=== PATIENT | female | born 1950 | race Caucasian/White ===

== ENCOUNTER 2017-02-11 15:53 | Inpatient (IN) | payer MEDICARE, MEDICAID ==
[~2017-02-11] VITALS: Ht 151.1 cm; Wt 64.0 kg
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
--- NOTE | ~2017-02-11 | DS ---
[place], [place] DISCHARGE SUMMARY NAME: WOODY COHN UNIT #: [id number] ROOM: 312 DOCTOR: GISELL BRAVO BIRTHDATE: [birth year] DOS: 02/13/2017 CHIEF COMPLAINT: "I am ready to go home." HISTORY OF PRESENT ILLNESS: She is a 66-year-old white female who was pink slipped to the [facility] from [facility]. She went there to [facility] because she was having what she believed was a panic attack, shortness of breath and high anxiety. While at [facility], she also complained of pain. When she was there, they believed that she was suicidal and so she was pink slipped to the unit. PAST MEDICAL HISTORY: Significant for asthma. She does have chronic back pain due to bulging disk and disk degeneration, COPD, fibromyalgia, GERD, hyperlipidemia, hypertension and a mitral valve prolapse. ALLERGIES: She lists allergies to both PAXIL and ZOLOFT. SUMMARY OF HOSPITAL STAY: When she came in on February 11, she was on Ativan Trintellix and Latuda, those medications were discontinued and Klonopin was started in order to treat her panic disorder and that was titrated to a dose of 0.5 mg twice a day and then a full milligram at bedtime. She was also started on Sinequan for her depression and also to assist with pain control and that was at 25 mg in the morning and 50 mg at bedtime. She has been stable while she has been on the unit. She continues to occasionally have disordered thinking but this is her baseline. MENTAL STATUS: She is alert and oriented. Her mood was euthymic on discharge. Affect was appropriate. There is no ryan or hypomania. She denies any audio or visual hallucinations, delusions or paranoia. DIAGNOSES: Major depressive disorder and panic disorder. DISPOSITION: She will be discharged home. Her scripts were printed and will be sent with her at discharge. She is psychiatrically stable at discharge. [place], [place] DISCHARGE SUMMARY NAME: WOODY COHN UNIT #: [id number] ROOM: 312 DOCTOR: GISELL BRAVO BIRTHDATE: [birth year] Gisell Cutlip, [employer] CM:DISCHARG [id number] GISELL CUTLIP 02/13/17 172 interface
[2017-02-11] MEDS ORDERED: ATENOLOL50 M1 PO (18:53)
[2017-02-11] MEDS ORDERED: ZANTAC 300300 MG PO (18:54)
[2017-02-11] MEDS ORDERED: LASIX40 MG PO (18:54)
[2017-02-11] MEDS ORDERED: VALIUM10 MG PO (18:56)
[2017-02-11] MEDS ORDERED: NORCO 10-325 T1 EACH PO (18:56)
[2017-02-11 21:47] VITALS: BP 123/67
[2017-02-11 22:30] VITALS: BP 123/67
[2017-02-12 08:16] VITALS: BP 141/73
[2017-02-12 14:02] LABS: BASO % 0.4 % (0.0-1.0); EOS # 0.1 10*3/uL (0.0-0.4); EOS % 1.8 % (1.0-4.0); HEMATOCRIT 43.1 % (37.0-47.0); HEMOGLOBIN 14.7 g/dl (12.0-16.0); LYMPH % 25.6 % (27.0-41.0); MEAN CELL VOLUME 93.5 fl (81.0-99.0); MEAN CORPUSCULAR HGB 31.9 pg (27.0-31.0); MEAN CORPUSCULAR HGB CONC 34.1 g/dl (33.0-37.0); MEAN PLATELET VOLUME 9.8 fl (9.6-12.3); MONO # 0.5 10*3/uL (0.1-1.0); MONO % 7.1 % (3.0-9.0); NEUT # 4.9 10*3/uL (2.3-7.9); NEUT % 64.7 % (47.0-73.0); PLATELET COUNT AUTOMATED 254 10*3/uL (130-400); RED BLOOD COUNT 4.61 10*6/uL (4.10-5.10); RED CELL DISTRI WIDTH 13.1 % (0-14.5); WHITE BLOOD COUNT 7.6 10*3/uL (4.8-10.8)
[2017-02-12 14:34] LABS: ALBUMIN 3.5 gm/dl (3.1-4.5); ALKALINE PHOSPHATASE 104 U/L (45-117); BUN 11 mg/dl (7-24); CHLORIDE 108 mmol/L (98-107); CHOLESTEROL 144 mg/dL (<200); CREATININE 0.94 mg/dL (0.55-1.02); HDL CHOLESTEROL 55 mg/dl (40-60); LDL CHOLESTEROL 69 mg/dL (9-159); PHOSPHOROUS 3.7 mg/dL (2.5-4.9); POTASSIUM 3.8 mmol/L (3.5-5.1); SGOT/AST 29 IU/L (3-35); SGPT/ALT 29 U/L (12-78); SODIUM 142 mmol/L (136-145); TOTAL PROTEIN 6.9 gm/dL (6.4-8.2); TRIGLYCERIDES 101 mg/dl (<150); VLDL CHOLESTEROL 20 mg/dL (6-40)
[2017-02-12 14:41] LABS: VITAMIN D, 25-HYDROXY 10.3 ng/mL (30-100)
[2017-02-12 14:48] LABS: FREE T4 1.14 ng/dl (0.76-1.46)
[2017-02-12 18:15] LABS: BILIRUBIN NEGATIVE (NEGATIVE); BLOOD NEGATIVE (NEGATIVE); CLARITY CLEAR (CLEAR); COLOR YELLOW (YELLOW); GLUCOSE NEGATIVE (NEGATIVE); KETONE NEGATIVE (NEGATIVE); LEUKO ESTERASE 2+ (NEGATIVE); NITRITE NEGATIVE (NEGATIVE); SPECIFIC GRAVITY <= 1.005 (1.005-1.030); UROBILINOGEN 0.2 E.U./dl (0.2-1.0)
[2017-02-12 18:21] LABS: BACTERIA TRACE
[2017-02-12 18:22] LABS: RBC 0-2 rbc/hpf (0-2); WBC 16-20 wbc/hpf (0-5)
[2017-02-12 20:00] VITALS: BP 124/62
[2017-02-12 22:02] VITALS: BP 138/64
[2017-02-13 06:56] VITALS: BP 125/55
[2017-02-13] MEDS ORDERED: CLONAZEPAM1 MG PO (09:12)
[2017-02-13] MEDS ORDERED: Vitamin D PO (09:12)
[2017-02-13] MEDS ORDERED: DOXEPIN HCL25 MG PO ×2 (09:12)
[2017-02-13] MEDS ORDERED: CLONAZEPAM0.5 M2 PO (09:12)
== END 2017-02-13 14:54 | disposition home or self-care (01) | DRG 885 ==
LOC: 3N 15:53
PROVIDERS: Internal Medicine; ADMIT Psychiatry & Neurology Psychiatry
DX: F33.9 Major depressive disorder, recurrent, unspecified (principal); J44.9 Chronic obstructive pulmonary disease, unspecified; I10 Essential (primary) hypertension; G89.29 Other chronic pain; M54.9 Dorsalgia, unspecified; K21.9 Gastro-esophageal reflux disease without esophagitis; E78.5 Hyperlipidemia, unspecified; M79.7 Fibromyalgia; F41.0 Panic disorder [episodic paroxysmal anxiety]; D72.810 Lymphocytopenia; E03.9 Hypothyroidism, unspecified; M50.30 Other cervical disc degeneration, unspecified cervical region; M51.35 Other intervertebral disc degeneration, thoracolumbar region; F17.210 Nicotine dependence, cigarettes, uncomplicated; M06.9 Rheumatoid arthritis, unspecified; F41.9 Anxiety disorder, unspecified; G47.00 Insomnia, unspecified; E55.9 Vitamin D deficiency, unspecified; Z88.8 Allergy status to other drugs, medicaments and biological substances; Z90.49 Acquired absence of other specified parts of digestive tract; Z82.49 Family history of ischemic heart disease and other diseases of the circulatory system; Z82.61 Family history of arthritis; Z79.899 Other long term (current) drug therapy

== ENCOUNTER 2020-03-26 15:05 | Inpatient (IN) | payer OTHER ==
[~2020-03-26] VITALS: Ht 154.9 cm; Wt 75.7 kg
[~2020-03-26 15:05] MED LIST: ATENOLOL50 M1 PO; CLONAZEPAM0.5 M2 PO; CLONAZEPAM1 MG PO; DOXEPIN HCL25 MG PO; LASIX40 MG PO; NORCO 10-325 T1 EACH PO; VALIUM10 MG PO; Vitamin D PO; ZANTAC 300300 MG PO
[2020-03-26] MEDS ORDERED: ACETAMINOPHEN325 M2 PO (15:18)
[2020-03-26] MEDS ORDERED: AMLODIPINE BESYL5 MG PO (15:18)
[2020-03-26] MEDS ORDERED: CHLORDIAZEPOXID25 MG PO (15:23)
[2020-03-26] MEDS ORDERED: CYMBALTA60 MG PO (15:24)
[2020-03-26] MEDS ORDERED: HYDROXYZINE PO (15:28)
[2020-03-26] MEDS ORDERED: IBU-200200 MG PO (15:30)
[2020-03-26] MEDS ORDERED: HYDROXYZINE HCL25 MG PO (15:30)
[2020-03-26] MEDS ORDERED: REMERON15 M2 PO (15:31)
[2020-03-26] MEDS ORDERED: OMEPRAZOLE MAGN20 MG PO (15:31)
[2020-03-26] MEDS ORDERED: ROZEREM8 MG PO (15:32)
[2020-03-26] MEDS ORDERED: ZYPREXA5 M1 PO (15:33)
[2020-03-26] MEDS ORDERED: VITAMIN D3125 MCG PO (15:33)
[2020-03-26] MEDS ORDERED: B121000 MCG/1 IM (15:34)
[2020-03-27 08:05] VITALS: BP 136/62; BP 163/62
[2020-03-27 09:14] LABS: BASO % 0.2 % (0.0-1.0); EOS # 0.1 10*3/uL (0.0-0.4); EOS % 0.7 % (1.0-4.0); LYMPH # 1.7 10*3/uL (1.3-4.4); LYMPH % 19.7 % (27.0-41.0); MEAN CELL VOLUME 89.2 fl (81.0-99.0); MEAN CORPUSCULAR HGB 30.6 pg (27.0-31.0); MEAN CORPUSCULAR HGB CONC 34.3 g/dl (33.0-37.0); MEAN PLATELET VOLUME 10.5 fl (9.6-12.3); MONO # 0.8 10*3/uL (0.1-1.0); MONO % 9.3 % (3.0-9.0); NEUT # 6.1 10*3/uL (2.3-7.9); NEUT % 69.8 % (47.0-73.0); PLATELET COUNT AUTOMATED 302 10*3/uL (130-400); RED BLOOD COUNT 4.93 10*6/uL (4.10-5.10); RED CELL DISTRI WIDTH 13.3 % (0-14.5); WHITE BLOOD COUNT 8.7 10*3/uL (4.8-10.8)
[2020-03-27 09:33] LABS: ALKALINE PHOSPHATASE 125 U/L (45-117); BUN 15 mg/dl (7-24); CHLORIDE 110 mmol/L (98-107); CHOLESTEROL 165 mg/dL (<200); CREATININE 0.96 mg/dL (0.55-1.02); HDL CHOLESTEROL 52 mg/dl (40-60); LDL CHOLESTEROL 99 mg/dL (9-159); POTASSIUM 3.1 mmol/L (3.5-5.1); SGOT/AST 29 IU/L (3-35); SGPT/ALT 34 U/L (12-78); SODIUM 142 mmol/L (136-145); TOTAL PROTEIN 7.9 gm/dL (6.4-8.2); TRIGLYCERIDES 72 mg/dl (<150); VLDL CHOLESTEROL 14 mg/dL (6-40)
[2020-03-27 10:26] LABS: VITAMIN D, 25-HYDROXY 86.1 ng/mL (30-100)
[2020-03-27 19:55] VITALS: BP 145/53
[2020-03-28 08:00] VITALS: BP 150/55
[2020-03-28 19:54] VITALS: BP 106/55
[2020-03-29 07:57] VITALS: BP 130/61
[2020-03-29 20:00] VITALS: BP 113/56
[2020-03-30 07:40] VITALS: BP 116/55
[2020-03-30 08:51] LABS: BILIRUBIN Negative (Negative); BLOOD Negative (Negative); CLARITY Clear (Clear); COLOR Yellow (Yellow); GLUCOSE Negative (Negative); KETONE Negative (Negative); LEUKO ESTERASE 1+ (Negative); NITRITE Negative (Negative); SPECIFIC GRAVITY 1.015 (1.001-1.030)
[2020-03-30 09:26] LABS: BACTERIA 1+; MUCOUS TRACE; WBC 16-20 wbc/hpf (0-5)
[2020-03-30 19:12] VITALS: BP 107/53
[2020-03-31 08:00] VITALS: BP 121/42
[2020-03-31 20:44] VITALS: BP 117/66
[2020-04-01 07:46] VITALS: BP 110/65
[2020-04-01 20:00] VITALS: BP 113/63
[2020-04-02 08:00] VITALS: BP 112/60
[2020-04-02 19:53] VITALS: BP 141/64
[2020-04-03 06:48] LABS: BUN 18 mg/dl (7-24); CHLORIDE 109 mmol/L (98-107); POTASSIUM 2.9 mmol/L (3.5-5.1); SODIUM 144 mmol/L (136-145)
[2020-04-03 07:51] VITALS: BP 113/68
[2020-04-03 20:00] VITALS: BP 131/59
[2020-04-04 07:54] VITALS: BP 114/64
[2020-04-04 18:57] VITALS: BP 119/65
[2020-04-05 07:02] VITALS: BP 116/52
[2020-04-05 07:22] LABS: BUN 18 mg/dl (7-24); CHLORIDE 110 mmol/L (98-107); CREATININE 1.03 mg/dL (0.55-1.02); POTASSIUM 3.2 mmol/L (3.5-5.1); SODIUM 141 mmol/L (136-145)
[2020-04-05 20:00] VITALS: BP 128/52
[2020-04-06 07:29] VITALS: BP 110/56
[2020-04-06 19:13] VITALS: BP 116/83
[2020-04-07 07:50] VITALS: BP 132/50
[2020-04-07 19:21] VITALS: BP 123/63
[2020-04-08 07:43] VITALS: BP 132/52
[2020-04-08 19:09] VITALS: BP 106/61; BP 120/60
[2020-04-09 08:00] VITALS: BP 131/53
[2020-04-09 19:46] VITALS: BP 118/46
[2020-04-10 07:43] VITALS: BP 136/56
[2020-04-10] MEDS ORDERED: MIRTAZAPINE15 M2 PO (09:36)
[2020-04-10] MEDS ORDERED: MINIPRESS2 M1 PO (09:36)
[2020-04-10] MEDS ORDERED: HYDROXYZINE HCL25 MG PO (09:36)
[2020-04-10] MEDS ORDERED: OLANZAPINE5 MG PO (09:36)
[2020-04-10] MEDS ORDERED: VITAMIN D3125 MC1 PO (09:36)
[2020-04-10 20:00] VITALS: BP 120/68
== END 2020-04-10 20:51 | disposition home or self-care (01) | DRG 881 ==
LOC: 3N 15:05
PROVIDERS: Internal Medicine; Registered Nurse; ADMIT Psychiatry & Neurology Psychiatry; ATTEND Psychiatry & Neurology Psychiatry
DX: F34.1 Dysthymic disorder (principal); F33.2 Major depressive disorder, recurrent severe without psychotic features; R45.851 Suicidal ideations; J44.9 Chronic obstructive pulmonary disease, unspecified; K21.9 Gastro-esophageal reflux disease without esophagitis; M79.7 Fibromyalgia; F41.0 Panic disorder [episodic paroxysmal anxiety]; E87.6 Hypokalemia; R73.9 Hyperglycemia, unspecified; F43.10 Post-traumatic stress disorder, unspecified; F41.1 Generalized anxiety disorder; I10 Essential (primary) hypertension; E78.5 Hyperlipidemia, unspecified; I34.1 Nonrheumatic mitral (valve) prolapse; E55.9 Vitamin D deficiency, unspecified; F17.210 Nicotine dependence, cigarettes, uncomplicated; Z20.828 Contact with and (suspected) exposure to other viral communicable diseases; R00.1 Bradycardia, unspecified; Z88.8 Allergy status to other drugs, medicaments and biological substances